=== PATIENT | male | born 1940 | race Caucasian/White ===

== ENCOUNTER 2020-07-13 07:46 | Outpatient (CLI) | payer MEDICARE, OTHER | END 2020-07-13 23:59 | disposition home or self-care (01) | LOC: ROC 07:46 | PROVIDERS: ATTEND Radiology Radiation Oncology | DX: Z08 Encounter for follow-up examination after completed treatment for malignant neoplasm (principal); Z85.46 Personal history of malignant neoplasm of prostate | CPT/HCPCS: G0463 ==

== ENCOUNTER 2020-09-04 08:29 | Outpatient (CLI) | payer MEDICARE, OTHER | END 2020-09-04 23:59 | disposition home or self-care (01) | LOC: ROC 08:29 | PROVIDERS: ATTEND Radiology Radiation Oncology | DX: Z08 Encounter for follow-up examination after completed treatment for malignant neoplasm (principal); Z85.46 Personal history of malignant neoplasm of prostate | CPT/HCPCS: G0463 ==

== ENCOUNTER → 2020-11-23 | Outpatient (CLI) | payer MEDICARE, OTHER | END | disposition home or self-care (01) | LOC: ROC 10:52 | PROVIDERS: ATTEND Radiology Radiation Oncology | DX: Z08 Encounter for follow-up examination after completed treatment for malignant neoplasm (principal); Z85.46 Personal history of malignant neoplasm of prostate | CPT/HCPCS: G0463 ==